=== PATIENT | female | born 1960 | race Caucasian/White ===

== ENCOUNTER 2017-05-16 11:22 | Inpatient (IN) | payer BC ==
[2017-05-16 13:10] LABS: ALT (SGPT) 18 U/L (8-55); AST (SGOT) 17 U/L (5-34); Albumin 4.3 g/dL (3.5-5.0); Alkaline Phosphatase 122 U/L (40-150); Anion Gap 12 mmol/L (10-20); BUN (Urea Nitrogen) 13 mg/dL (9.8-20.1); Bilirubin, Total 0.9 mg/dL (0.2-1.2); CK (CPK) 109 U/L (29-168); Calc. Creatinine Clearance 0 mL/min (70-130); Calcium 9.6 mg/dL (7.8-10.44); Carbon Dioxide 28 mmol/L (22-29); Chloride 104 mmol/L (98-107); Estimated GFR-MDRD 51; Globulin 3.2 g/dL (2.4-3.5); Glucose 98 mg/dL (70-105); Potassium 3.9 mmol/L (3.5-5.1); Protein, Total 7.5 g/dL (6.0-8.3); Sodium 140 mmol/L (136-145)
[2017-05-16 13:14] LABS: CKMB 1.3 ng/mL (0-6.6); Troponin I Less than 0.010 ng/mL (< 0.028)
[2017-05-16 13:39] LABS: #Basophils 0.1 thou/uL (0.0-0.2); #Eosinphils 0.1 thou/uL (0.0-0.7); #Monocytes 0.6 thou/uL (0.11-0.59); #Neutrophils 4.8 thou/uL (1.40-6.50); %Basophils 0.7 % (0.0-1.0); %Eosinophils 1.4 % (0.0-10.0); %Lymphocytes 41.9 % (21.0-51.0); %Monocytes 5.7 % (0.0-10.0); %Neutrophils 50.4 % (42.0-75.0); Mean Corpuscular HGB CONC 35.7 g/dL (32.0-36.0); Mean Corpuscular Hemoglobin 30.9 pg (27.0-31.0); Mean Corpuscular Volume 86.5 fl (81.0-99.0); Mean Platelet Volume 7.5 fL (7.4-10.4); Platelet Count 255 thou/uL (130-400); RBC Distribution Width 12.8 % (11.5-14.5); Red Blood Cell (RBC) Count 4.54 mill/uL (4.20-5.40); White Blood Cell (WBC) Count 9.6 thou/uL (4.8-10.8)
--- NOTE | 2017-05-16 13:51 | RAD ---
CHEST 1 VIEW: History Chest pain. COMPARISON: 03/08/16. FINDINGS: Cardiac silhouette is magnified by projection. Pulmonary vasculature is unremarkable. Mediastinum i s midline. There is no lobar consolidation or evidence of pneumothorax. quartz mounter leads overl ie the chest. IMPRESSION: No active cardiopulmonary abnormalities are demonstrated. POS: [facility]
[2017-05-16] MEDS ORDERED: Ondansetron HCl/PF 4 MG/2 ML Vial IVP PRN (15:12)
[2017-05-16] MEDS ORDERED: Ondansetron ODT 4 MG TAB PO PRN (15:12)
[2017-05-16] MEDS ORDERED: Acetaminophen 325 MG TAB PO PRN (15:12)
[2017-05-16] MEDS ORDERED: Nitroglycerin 0.4 MG TAB (25 Tab Bottle) PO PRN (15:12)
[2017-05-16 15:37] LABS: #Basophils 0.1 thou/uL (0.0-0.2); #Eosinphils 0.1 thou/uL (0.0-0.7); #Lymphocytes 3.6 thou/uL (1.20-3.40); #Monocytes 0.6 thou/uL (0.11-0.59); #Neutrophils 5.2 thou/uL (1.40-6.50); %Basophils 0.7 % (0.0-1.0); %Eosinophils 1.6 % (0.0-10.0); %Lymphocytes 37.4 % (21.0-51.0); %Monocytes 5.7 % (0.0-10.0); %Neutrophils 54.6 % (42.0-75.0); Hemoglobin 14.1 g/dL (12.0-16.0); Mean Corpuscular HGB CONC 35.2 g/dL (32.0-36.0); Mean Corpuscular Hemoglobin 30.6 pg (27.0-31.0); Mean Corpuscular Volume 86.7 fl (81.0-99.0); Mean Platelet Volume 7.2 fL (7.4-10.4); Platelet Count 251 thou/uL (130-400); RBC Distribution Width 12.8 % (11.5-14.5); Red Blood Cell (RBC) Count 4.62 mill/uL (4.20-5.40); White Blood Cell (WBC) Count 9.6 thou/uL (4.8-10.8)
[2017-05-16 16:02] LABS: Troponin I Less than 0.010 ng/mL (< 0.028)
[2017-05-16 16:33] VITALS: BMI 39.9
[2017-05-16] MEDS ORDERED: Clopidogrel Bisulfate 300 MG TAB PO SCH (17:15)
--- NOTE | 2017-05-16 17:52 | CON ---
DATE OF CONSULTATION: 05/16/2017 HISTORY OF PRESENT: The patient is a pleasant 56-year-old woman who presents with recurrent chest discomfort. The patient was seen initially in 2010. She was found to have severe coronary artery disease. She had 100% occlusion of the right coronary artery and mild disease in left anterior descending artery. The patient has been on medical therapy. She has had stable angina. Recently, she noted to have increasing frequency of her angina. She underwent a PET scan which revealed her to have evidence of mild anterior ischemia. The patient reported that her chest pain has been increasing in frequency. She presented to the emergency room with severe chest discomfort that resolved after 1 nitroglycerin tablet. This chest discomfort lasts for approximately 10- 15 minutes. The discomfort was left-sided and radiated up into her shoulder. It was associated with diaphoresis. Patient states she has been compliant with her medications. PAST MEDICAL HISTORY: 1. Coronary artery disease. 2. Hypertension. 3. Dyslipidemia. 4. Chronic renal insufficiency. 5. Diabetes mellitus. 6. Obesity. PAST SURGICAL HISTORY: Bladder surgery and C-spine surgery. SOCIAL HISTORY: Nonsmoker. MEDICATIONS: Amitriptyline 10 mg daily, gabapentin 300 mg at bedtime, Lipitor 40 at bedtime, Ziac 10/6.25 daily, Ranexa 500 mg p.o. b.i.d., Dexilant 20 mg at bedtime, lisinopril 10 daily, and Norvasc 5 daily. SOCIAL HISTORY: Nonsmoker. FAMILY HISTORY: Strong family history of heart disease. ALLERGIES: No known drug allergies. REVIEW OF SYSTEMS: Ten point system noticeable for anxiety, otherwise unremarkable. PHYSICAL EXAMINATION: GENERAL: Obese woman in no acute distress. VITAL SIGNS: Blood pressure 116/56. NECK: Showed no jugular venous distention. LUNGS: Clear to auscultation. HEART: Regular rate and rhythm, normal S1, S2 with no murmurs. ABDOMEN: Distended. EXTREMITIES: Showed trace edema. SKIN: Warm and dry. NEUROLOGIC: Nonfocal. VASCULAR: Radial pulses are 2+. LABORATORY RESULTS: Revealed her to have a sodium of 140, potassium 3.9, chloride 104, bicarbonate 28, BUN 30, creatinine 1.12, troponin less than 0.011. White blood cell count 9.6, hemoglobin 14.1, hematocrit 40.0 and her platelets are 251. Her EKG revealed her to have normal sinus rhythm with low voltage QRS. IMPRESSION: 1. Unstable angina. 2. History of severe coronary artery disease with totally occluded right coronary artery. 3. Hypertension. 4. Diabetes mellitus. 5. Dyslipidemia. 6. Obesity. This patient presents with chest discomfort suggestive of angina. We will add Imdur to her medical regimen. We will follow this patient with you through her hospitalization. We will add Plavix and probably recommend repeat catheterization. UMAIR
[2017-05-16] MEDS: Famotidine 20 MG TAB PO SCH (19:11)
[2017-05-16] MEDS: Atorvastatin Calcium 40 MG TAB PO SCH (19:24)
[2017-05-16 19:42] LABS: Troponin I Less than 0.010 ng/mL (< 0.028)
[2017-05-17 04:50] LABS: Band 5 % (5-11); Hemoglobin 13.6 g/dL (12.0-16.0); Lymphocytes 49 % (21-51); MDiff Complete? YES; Mean Corpuscular HGB CONC 34.9 g/dL (32.0-36.0); Mean Corpuscular Hemoglobin 30.4 pg (27.0-31.0); Mean Platelet Volume 7.5 fL (7.4-10.4); Monocytes 2 % (0-10); Neutrophil 44 % (42-75); Platelet Count 227 thou/uL (130-400); Red Blood Cell (RBC) Count 4.49 mill/uL (4.20-5.40); White Blood Cell (WBC) Count 8.4 thou/uL (4.8-10.8)
--- NOTE | 2017-05-17 07:11 | HP ---
CHIEF COMPLAINT: Chest pain. HISTORY OF PRESENT ILLNESS: This is a 56-year-old female patient, who presented here with chest pain that started after she took took a walk. Pain described as pressure and sharp with radiation to the left shoulder associated with some dizziness, shortness of breath, and a little bit of diaphoresis. Patient has never experienced this kind of pain before. The pain described as 10/10, relieved by ni tro. The patient does have a remote history of blocked coronary artery that was identified during pr evious cardiac catheterization. Recent PET scan according to the patient was somewhat inconclusive d ue to tissue attenuation. Patient is now being admitted for chest pain to rule out significant coron marco a artery disease. PAST MEDICAL HISTORY: Significant for coronary artery disease, hypertension, dyslipidemia, type 2 di abetes, and obesity. MEDICATIONS: Reviewed and as documented on babbel. ALLERGIES: No known drug allergies. FAMILY HISTORY: Significant for heart disease in both parents. SOCIAL HISTORY: Denies alcohol. The patient is . No tobacco, no illicit drug use. REVIEW OF SYSTEMS: As documented in the body of the history. PHYSICAL EXAMINATION: GENERAL: The patient was found not to be in any obvious distress noted with the following vital sign s. VITAL SIGNS: Afebrile with temperature 98.2, pulse 65, respiratory rate 16, O2 sat of 95%, blood pre ssure 116/56. HEENT: Unremarkable with moist oral mucosa. Neck is supple. No conjunctival injection or icterus. CARDIOVASCULAR SYSTEM: First and second heart sounds were heard. RESPIRATORY SYSTEM: Clear to auscultation. DIGESTIVE SYSTEM: Revealed a benign abdomen with positive bowel sounds. EXTREMITIES: No peripheral edema. SKIN: No new gross rash. LYMPHATICS: No peripheral lymphadenopathy. IMPRESSION: 1. Chest pain/unstable angina somewhat concerning for significant coronary artery disease. 2. Hypertension. 3. Dyslipidemia. 4. History of coronary artery disease. 5. Type 2 diabetes mellitus. PLAN: 1. The patient admitted to telemetry for observation. 2. Serial cardiac enzymes. 3. Cardiology consultation. 4. Nitroglycerin p.r.n. 5. Further management will be dependent on the clinical course as well as further recommendations fr Cardiology. CODE STATUS: FULL.
--- NOTE | 2017-05-17 07:36 | PDOC.PN ---
- Subjective Encounter Start Date: 05/17/17 Encounter Start Time: 07:34 Subjective: Seen and examined feeling better - Objective Resuscitation Status: Resuscitation Status FULL:Full Resuscitation Vital Signs & Weight: Vital Signs (12 hours) Temp Pulse Resp BP Pulse Ox 05/17/17 07:29 98.7 F 77 16 116/76 94 L 05/17/17 03:19 98.5 F 70 20 113/75 94 L 05/17/17 00:10 73 18 120/75 93 L 05/16/17 20:00 98.2 F 65 16 Weight Weight 247 lb I&O: 05/16/17 05/17/17 05/18/17 06:59 06:59 06:59 Intake Total 480 Output Total 900 Balance -420 Result Diagrams: 05/17/17 03:58 05/16/17 12:25 Phys Exam - Physical Examination Constitutional: NAD HEENT: PERRLA, moist MMs, sclera anicteric, TM's clear Neck: no nodes, no JVD, supple, full ROM Respiratory: no wheezing, no rales, no rhonchi, clear to auscultation bilateral Cardiovascular: RRR, no significant murmur, no rub Gastrointestinal: soft, non-tender, no distention, positive bowel sounds Musculoskeletal: no edema, pulses present Dx/Plan (1) Chest pain Code(s): R07.9 - CHEST PAIN, UNSPECIFIED Status: Acute (2) Unstable angina Status: Acute (3) CAD in [place] artery Code(s): I25.10 - ATHSCL HEART DISEASE OF [place] CORONARY ARTERY W/O ANG PCTRS Status: Acute (4) Hypertension Code(s): I10 - ESSENTIAL (PRIMARY) HYPERTENSION Status: Acute (5) Diabetes 1.5, managed as type 2 Code(s): E10.9 - TYPE 1 DIABETES MELLITUS WITHOUT COMPLICATIONS Status: Acute (6) Dyslipidemia Code(s): E78.5 - HYPERLIPIDEMIA, UNSPECIFIED Status: Acute - Plan DVT proph w/lovenox On aspirin and plavix -: Cardiology following -: Possible cardiac catherisation--deffer to cardiology * .
[2017-05-17] MEDS: Aspirin 325 MG TAB PO SCH (08:35)
[2017-05-17] MEDS: Bisoprolol Fumarate/HCTZ 10 mg/6.25 mg Tablet PO SCH (08:35)
[2017-05-17] MEDS: Lisinopril 10 MG TAB PO SCH (08:35)
[2017-05-17] MEDS: Clopidogrel Bisulfate 75 MG TAB PO SCH (08:35)
[2017-05-17] MEDS: Famotidine 20 MG TAB PO SCH ×2 (08:36→20:53)
[2017-05-17] MEDS: Enoxaparin Sodium 40 MG/0.4 ML SYRINGE SC SCH (08:37)
[2017-05-17] MEDS: Atorvastatin Calcium 40 MG TAB PO SCH (20:52)
[2017-05-17] MEDS: Amlodipine 5 MG TAB PO SCH (20:53)
[2017-05-17] MEDS ORDERED: Amlodipine 5 MG TAB PO SCH (21:00)
--- NOTE | 2017-05-18 08:18 | PDOC.PN ---
- Subjective Encounter Start Date: 05/18/17 Encounter Start Time: 08:17 Subjective: Seen and examined feeling ok - Objective Resuscitation Status: Resuscitation Status FULL:Full Resuscitation Vital Signs & Weight: Vital Signs (12 hours) Temp Pulse Resp BP Pulse Ox 05/18/17 07:55 98.2 F 65 14 05/18/17 07:52 98.2 F 65 14 107/65 94 L 05/18/17 04:02 98.4 F 65 16 97/55 L 94 L Weight Weight 247 lb I&O: 05/17/17 05/18/17 05/19/17 06:59 06:59 06:59 Intake Total 480 200 Output Total 900 1350 Balance -420 -1150 Result Diagrams: 05/17/17 03:58 05/16/17 12:25 Phys Exam - Physical Examination Constitutional: NAD HEENT: PERRLA, moist MMs, sclera anicteric, TM's clear, oral pharynx no lesions Neck: no nodes, no JVD, supple, full ROM Respiratory: no wheezing, no rales, no rhonchi, clear to auscultation bilateral Cardiovascular: RRR, no significant murmur, no rub Gastrointestinal: soft, non-tender, no distention, positive bowel sounds Musculoskeletal: no edema, pulses present Dx/Plan (1) Chest pain Code(s): R07.9 - CHEST PAIN, UNSPECIFIED Status: Acute (2) Unstable angina Status: Acute (3) CAD in [place] artery Code(s): I25.10 - ATHSCL HEART DISEASE OF [place] CORONARY ARTERY W/O ANG PCTRS Status: Acute (4) Hypertension Code(s): I10 - ESSENTIAL (PRIMARY) HYPERTENSION Status: Acute (5) Diabetes 1.5, managed as type 2 Code(s): E10.9 - TYPE 1 DIABETES MELLITUS WITHOUT COMPLICATIONS Status: Acute (6) Dyslipidemia Code(s): E78.5 - HYPERLIPIDEMIA, UNSPECIFIED Status: Acute - Plan plan discussed w/ family Cardiac catherisation tommorrow -: Change status to in patient * .
[2017-05-18] MEDS: Enoxaparin Sodium 40 MG/0.4 ML SYRINGE SC SCH (08:41)
[2017-05-18] MEDS: Bisoprolol Fumarate/HCTZ 10 mg/6.25 mg Tablet PO SCH (08:41)
[2017-05-18] MEDS: Clopidogrel Bisulfate 75 MG TAB PO SCH (08:41)
[2017-05-18] MEDS: Aspirin 325 MG TAB PO SCH (08:41)
[2017-05-18] MEDS: Famotidine 20 MG TAB PO SCH ×2 (08:41→20:30)
[2017-05-18] MEDS: Lisinopril 10 MG TAB PO SCH (08:41)
[2017-05-18] MEDS ORDERED: Communication Order-Pharmacy FS SCH (14:45)
[2017-05-18] MEDS: Amlodipine 5 MG TAB PO SCH (20:30)
[2017-05-18] MEDS: Atorvastatin Calcium 40 MG TAB PO SCH (20:32)
[2017-05-19] MEDS ORDERED: Diazepam 5 MG TAB PO SCH (06:00)
[2017-05-19] MEDS: Famotidine 20 MG TAB PO SCH (06:18)
[2017-05-19] MEDS: Clopidogrel Bisulfate 75 MG TAB PO SCH (06:19)
[2017-05-19] MEDS: Aspirin 325 MG TAB PO SCH (06:19)
[2017-05-19] MEDS: Lisinopril 10 MG TAB PO SCH (06:19)
[2017-05-19] MEDS ORDERED: Bisoprolol Fumarate/HCTZ 10 mg/6.25 mg Tablet PO SCH ×2 (06:30→07:00)
[2017-05-19 08:32] VITALS: BP 103/61; TEMP 98.3
[2017-05-19] MEDS ORDERED: Lidocaine 1% (PF) 30 ML VIAL ONE (09:17)
[2017-05-19] MEDS ORDERED: Midazolam HCl 2 mg/2 ml Vial ONE (09:44)
[2017-05-19] MEDS ORDERED: Fentanyl 100 MCG/2 ML VIAL ONE (09:44)
[2017-05-19] MEDS ORDERED: Acetaminophen/Codeine 30-300mg Tablet PO PRN ×2 (10:18)
[2017-05-19] MEDS ORDERED: Nitroglycerin 0.4 MG TAB (25 Tab Bottle) SL PRN (10:18)
[2017-05-19] MEDS ORDERED: traMADol HCl 50 MG TAB PO PRN (10:18)
[2017-05-19] MEDS ORDERED: Sodium Chloride 0.9% 200 ML IV PRN (10:30)
[2017-05-19] MEDS ORDERED: Bivalirudin 250 MG VIAL ONE (10:40)
[2017-05-19] MEDS ORDERED: Iopamidol 370 76% 50 ML VIAL FS ONE (12:51)
[2017-05-19] MEDS ORDERED: Iopamidol 370 76% 100 ML VIAL ONE (12:51)
--- NOTE | 2017-05-19 15:33 | EKG ---
Test Reason : POST CATH Blood Pressure : / mmHG Vent. Rate : 059 BPM Atrial Rate : 059 BPM P-R Int : 216 ms QRS Dur : 082 ms QT Int : 462 ms P-R-T Axes : 061 048 071 degrees QTc Int : 457 ms Sinus bradycardia with 1st degree A-V block Otherwise normal ECG Confirmed by JUAREZ PEREZ ([id number]) on 05/19/2017 3:33:00 PM Referred By: DESIREE Confirmed By:JUAREZ PEREZ
--- NOTE | 2017-05-19 18:12 | DIS ---
[facility] call admission for [facility]. [facility]. FINAL DIAGNOSES: Severe three-vessel coronary artery disease, chest pain, diabetes mellitus type 2, dyslipidemia, hypertension. DISCHARGE MEDICATIONS: Imdur 30 mg a day, Lipitor 80 mg a day, Trulicity 1.5 mg subcutaneous every 7 days, telmisartan 80 mg a day, metformin 1000 mg twice a day, aspirin 81 mg a day, terbinafine 250 m g a day, Lunesta 2 mg at bedtime, Ranexa 1000 mg twice a day, amlodipine 5 mg a day, clonidine 0.1 mg t.i.d. p.r.n., bisoprolol-hydrochlorothiazide 10/6.25 daily, Xanax 0.25 mg a day, nitroglycerin 0.4 mg every 5 minutes sublingual p.r.n. for chest pain 3 times max. ALLERGIES: None. PENDING AT THE TIME OF DISCHARGE: Nothing. CODE STATUS: FULL. DIET: Diabetic. HOSPITAL COURSE: [facility] to sharp chest pain radiating to left shoulder with shortness of breath. Initial electrocardiogram, sinus bradycardia, f irst degree block, otherwise normal. LABORATORY DATA: CBC was normal. Comp metabolic profile was normal except for creatinine 1.12. She was seen in consultation by Dr. Jonathan Davis. The patient was taken to the cardiac catheterization lab on 05/19/17, 70% right coronary artery lesion, 70% LAD, circumflex none. Normal left ventricula r function. Plavix was added to her regimen as was Imdur 30 mg a day, add Plavix to the medicine lis t previously mentioned. At the time of discharge, her vital signs are stable. She is doing well. S he had a cardiac catheterization. She is on bed rest for appropriate number of hours, and will be di scharged. This has been discussed with her. CONSULTATIONS: Dr. Jonathan Davis, Cardiology. PROCEDURES: Cardiac catheterization. FOLLOW-UP: PCP in 7 days, Dr. Davis in 2 weeks. Prescriptions have been written.
[2017-05-20] MEDS ORDERED: Bisoprolol Fumarate/HCTZ 10 mg/6.25 mg Tablet PO SCH (09:00)
--- NOTE | 2017-06-05 15:12 | EKG ---
Test Reason : CP Blood Pressure : / mmHG Vent. Rate : 070 BPM Atrial Rate : 070 BPM P-R Int : 204 ms QRS Dur : 076 ms QT Int : 424 ms P-R-T Axes : 049 011 068 degrees QTc Int : 457 ms Normal sinus rhythm Low voltage QRS Borderline ECG Confirmed by BROOKE HOWE ([id number]), fan mail editor ROSA M NAVA ([id number]) on 06/05/2017 3:12:06 PM Referred By: Confirmed By:BROOKE HOWE
== END 2017-05-19 20:25 | disposition home or self-care (01) | DRG 287 ==
LOC: ERS 11:22 → OBSVTOIN 14:44 → 2SW 14:44 → 2NO 05-18 10:49
PROVIDERS: ADMIT Internal Medicine Nephrology; ATTEND Internal Medicine Nephrology
PROC: 3E0234Z Introduction of Serum, Toxoid and Vaccine into Muscle, Percutaneous Approach (ICD-10-PCS; 2017-05-16)
PROC: 4A023N7 Measurement of Cardiac Sampling and Pressure, Left Heart, Percutaneous Approach (ICD-10-PCS; principal; 2017-05-19)
PROC: B2111ZZ Fluoroscopy of Multiple Coronary Arteries using Low Osmolar Contrast (ICD-10-PCS; 2017-05-19)
PROC: B2151ZZ Fluoroscopy of Left Heart using Low Osmolar Contrast (ICD-10-PCS; 2017-05-19)
DX: I25.110 Atherosclerotic heart disease of native coronary artery with unstable angina pectoris (principal); I25.82 Chronic total occlusion of coronary artery; E11.9 Type 2 diabetes mellitus without complications; E78.5 Hyperlipidemia, unspecified; I10 Essential (primary) hypertension; Z79.4 Long term (current) use of insulin; Z79.84 Long term (current) use of oral hypoglycemic drugs; Z23 Encounter for immunization
CPT/HCPCS: 36415; 36416; 71045; 80053; 82553; 84484; 85007; 85025; 85027; 85347; 90471; 90732; 93005; 93458; 93571; 99152; 99153; C1769; C1887; G0009; J0153; J0583; J1644; J1650; J2001; J2250; J3010

== ENCOUNTER 2018-12-24 09:28 | Observation (INO) | payer BC ==
[2018-12-24 10:15] LABS: #Basophils 0.1 thou/uL (0.0-0.2); #Eosinphils 0.1 thou/uL (0.0-0.7); #Lymphocytes 3.2 thou/uL (1.20-3.40); #Monocytes 0.4 thou/uL (0.11-0.59); #Neutrophils 4.2 thou/uL (1.40-6.50); %Basophils 0.8 % (0.0-1.0); %Eosinophils 1.4 % (0.0-10.0); %Lymphocytes 40.2 % (21.0-51.0); %Neutrophils 52.6 % (42.0-75.0); Hemoglobin 14.7 g/dL (12.0-16.0); Mean Corpuscular HGB CONC 36.3 g/dL (32.0-36.0); Mean Corpuscular Hemoglobin 30.6 pg (27.0-31.0); Mean Corpuscular Volume 84.1 fL (78.0-98.0); Mean Platelet Volume 7.7 fL (7.4-10.4); Platelet Count 240 thou/uL (130-400); RBC Distribution Width 13.5 % (11.5-14.5)
[2018-12-24 10:33] LABS: ALT (SGPT) 28 U/L (8-55); AST (SGOT) 18 U/L (5-34); Albumin 4.2 g/dL (3.5-5.0); Alkaline Phosphatase 130 U/L (40-110); Anion Gap 10 mmol/L (10-20); BUN (Urea Nitrogen) 12 mg/dL (9.8-20.1); Bilirubin, Total 0.9 mg/dL (0.2-1.2); CK (CPK) 111 U/L (29-168); Calc. Creatinine Clearance 0 mL/min (70-130); Calcium 9.7 mg/dL (7.8-10.44); Carbon Dioxide 30 mmol/L (22-29); Chloride 104 mmol/L (98-107); Estimated GFR-MDRD 44; Globulin 2.6 g/dL (2.4-3.5); Glucose 201 mg/dL (70-105); Potassium 3.5 mmol/L (3.5-5.1); Protein, Total 6.8 g/dL (6.0-8.3); Sodium 140 mmol/L (136-145)
[2018-12-24] MEDS ORDERED: Aspirin Chewable 81 MG TAB ONE (10:46)
[2018-12-24] MEDS ORDERED: Nitroglycerin 0.4 MG TAB 1 EACH ONE (10:46)
--- NOTE | 2018-12-24 10:56 | RAD ---
CHEST 1 VIEW: Date: 12/24/18 HISTORY: Chest pain that started this morning. COMPARISON: 05/16/17 study. FINDINGS: Heart size and mediastinum are within normal limits. Lungs are clear of infiltrates. No bony findings . IMPRESSION: No active intrathoracic disease. POS: [facility]
[2018-12-24] MEDS ORDERED: Nitroglycerin 2% Ointment 1 INCH/1 GM Packet ONE (10:58)
[2018-12-24] MEDS ORDERED: Nitroglycerin 0.4 MG TAB (25 Tab Bottle) PO PRN (11:31)
[2018-12-24] MEDS ORDERED: Dextrose 5% in Water 1,000 ML IV PRN (11:33)
[2018-12-24] MEDS ORDERED: HumaLOG 300 UNITS/3 ML VIAL SC PRN (11:33)
[2018-12-24] MEDS ORDERED: Dextrose 50% Abboject 50 ML SYRINGE SLOW IVP PRN (11:33)
--- NOTE | 2018-12-24 12:26 | HP ---
PRIMARY CARE PROVIDER: Dr. Ciaran Weathers. CHIEF COMPLAINT: Chest pain. HISTORY OF PRESENT ILLNESS: Ms. Torres is a pleasant 58-year-old lady, who was seen at [facility] on December 24, 2018. She has a known history of coronary artery disease and sees Dr. Davis. In May 2017, she underwent cardiac catheterization. She was found to have 2-vessel coronary artery disease, in LAD and RCA. She had good ventricular function. She was seen by Cardiology Service as an outpatient 3 weeks ago, at which time she had 2D echocardiogram. She was told that there was slight stiffening of her heart muscle. Since then, she has been feeling on and off chest discomfort. She describes it as sharp, left-sided, occasionally accompanied by pain in the neck, accompanied by shortness of breath. No cough, fevers, or chills. She reports using nitro spray with relief of the discomfort. She cannot recall any aggravating factors. Today morning, she was woken up from sleep with similar pain. It usually lasts a few minutes, but this time it lasted more than an hour. She therefore presented to the emergency room. She reports that it improved after she got nitrates. REVIEW OF SYSTEMS: All systems were reviewed and found to be negative except for the pertinent positives mentioned above. PAST MEDICAL HISTORY: Coronary artery disease; hypertension; dyslipidemia; diabetes mellitus, type 2; obesity; and chronic kidney disease, stage 3. PAST SURGICAL HISTORY: section and bladder sling surgery. PSYCHIATRIC HISTORY: Anxiety. SOCIAL HISTORY: No history of tobacco use, alcohol use, or recreational drug use. FAMILY HISTORY: Significant for stroke in her mother. ALLERGIES: NO KNOWN DRUG ALLERGIES. CURRENT MEDICATIONS: 1. Gabapentin 300 mg daily. 2. Atorvastatin 40 mg daily. 3. Bisoprolol/hydrochlorothiazide 10/6.25 mg daily. 4. Ranexa 1000 mg daily. 5. Lisinopril 10 mg daily. 6. Clonidine 0.1 mg every 8 hours as needed. 7. Alprazolam 0.25 mg as needed. 8. Lasix 20 mg daily. 9. Plavix 75 mg daily. 10. Nitroglycerin p.r.n. 11. Amlodipine, dose to be clarified. 12. Tramadol 50 mg as needed. 13. Metformin 500 mg 2 times a day. 14. Eszopiclone as needed. 15. Trulicity subcutaneously, dose unknown. PHYSICAL EXAMINATION: GENERAL: On examination, Ms. Torres is awake and alert, not in acute distress. She is obese. VITAL SIGNS: Blood pressure is 149/84, pulse 71, respiratory rate 14, and oxygen saturation 100% on room air. She is afebrile. HEENT: Eyes; no scleral icterus, no conjunctival pallor. ENT, moist mucosal membranes. No oropharyngeal erythema or exudates. NECK: Supple, nontender, trachea is midline. RESPIRATORY: Accessory muscles of breathing are not active. Chest wall movements are symmetric bilaterally. Lungs are clear to auscultation without wheeze, rhonchi, or crepitations. CARDIOVASCULAR: S1 and S2 are heard, regular. Peripheral pulses palpable. ABDOMEN: Soft, nontender, bowel sounds heard. NEUROLOGIC: Cranial nerves 2 through 12 are intact. MUSCULOSKELETAL: Power is 5/5 in all 4 extremities. SKIN: No rashes or subcutaneous nodules. LYMPHATIC: No cervical lymphadenopathy. PSYCHIATRIC: Normal mood, normal affect. The patient is oriented to person, place, and time. DIAGNOSTIC STUDIES: Ms. Torres' labs and investigations were reviewed. I reviewed her electrocardiogram, which shows normal sinus rhythm. No ST changes to suggest an acute coronary syndrome. I also reviewed her chest x-ray, which does not show any pulmonary infiltrates. She has an unremarkable CBC, normal sodium, normal potassium. Elevated creatinine of 1.25, last known creatinine 1.18 on December 03, 2018. Elevated alkaline phosphatase of 130 and an otherwise unremarkable liver function test. ASSESSMENT AND PLAN: Ms. Torres is a pleasant 58-year-old lady, who was seen at [facility] on December 24, 2018. Her problem list includes: 1. Chest pain: Ms. Torres is presenting with chest pain in the context of having known coronary artery disease. She attributes at least part of the sensation to anxiety. She will be admitted to the hospital for further management. I should note that her first troponin I is negative, EKG is unremarkable. We will recheck her troponin level. We will consult Cardiology Service for opinion and help with management. We will give nitrates as needed. We will resume home medications including Plavix and aspirin. 2. Diabetes mellitus, type 2: We will resume home medications and start her on Accu-Cheks and insulin sliding scale. 3. Chronic kidney disease, stage 3: This is stable. 4. Dyslipidemia: Continue atorvastatin. 5. Hypertension: Resume home medications. Monitor vital signs and titrate antihypertensives as needed. 6. Elevated alkaline phosphatase: Alkaline phosphatase is mildly elevated. To be followed up as an outpatient. I should note that on December 03, she had slightly higher alkaline phosphatase at 136, but at that time it was within the normal reference range, normal was 40 to 150 units/L at that time; today, the reference appears to have been changed to 40 to 110 units/L. Many thanks for allowing me to participate in your patient's care. Please feel free to contact me with any questions or concerns. LEVEL OF RISK: High. LEVEL OF COMPLEXITY: High. Job ID: [id number]
[2018-12-24 13:34] VITALS: BMI 41.3
[2018-12-24 14:20] LABS: Troponin I Less than 0.010 ng/mL (< 0.028)
[2018-12-24 17:04] LABS: Troponin I Less than 0.010 ng/mL (< 0.028)
[2018-12-24] MEDS ORDERED: ALPRAZolam 0.25 MG TAB PO PRN (20:04)
[2018-12-24] MEDS ORDERED: cloNIDine 0.1 MG TAB PO PRN (20:04)
[2018-12-24] MEDS ORDERED: traMADol HCl 50 MG TAB PO PRN (20:04)
[2018-12-24] MEDS ORDERED: Temazepam 15 MG CAP PO PRN (20:05)
[2018-12-24] MEDS ORDERED: Calcium Carbonate 500 MG ChewTAB PO PRN (20:36)
[2018-12-24] MEDS ORDERED: Atorvastatin Calcium 40 MG TAB PO SCH (21:00)
--- NOTE | 2018-12-25 03:23 | CON ---
DATE OF CONSULTATION: REASON FOR CONSULTATION: Chest pressure. PRIMARY GEAR SHAPER: Jonathan Davis MD HISTORY OF PRESENT ILLNESS: Ms. Torres is a very pleasant 58-year-old woman. The patient has a previous history of coronary artery disease. She was evaluated in 2018. She had known chronically occluded right coronary artery, but in the PET scan looked like there was likely anterior ischemia. Therefore, she underwent cardiac catheterization. She was found to have a chronically occluded right coronary artery, but no flow-limiting disease in the circumflex or LAD. FFR was also done. There was no flow-limiting disease. The patient states she has been having increasing chest pain recently, having to take about 2 nitroglycerin a day. She had an echocardiogram in the office recently and she is concerned about that report. She thinks that it showed that her disease has worsened. She said she is very worried about that. As mentioned, she is having to take nitroglycerin for resting chest pain at least twice a day. MEDICATIONS: 1. Xanax. 2. Clonidine. 3. Amlodipine. 4. Ranexa. 5. Aspirin. 6. Telmisartan. 7. Atorvastatin. 8. Clopidogrel. 9. Furosemide. 10. Vascepa. 11. Praluent. REVIEW OF SYSTEMS: 10 point review of systems reveals no further difficulties. ALLERGIES: NONE. SOCIAL HISTORY: No alcohol or tobacco. PHYSICAL EXAMINATION: GENERAL: This is a pleasant patient. VITAL SIGNS: She is 5 feet 6 inches tall, 256 pounds, BMI is 41.3. Blood pressure 131/72 and pulse 76. NECK: Neck veins are normal. Carotid normal upstrokes. No bruits. LUNGS: Clear anteriorly and posteriorly. CARDIAC: Normal S1, normal S2. There is no murmur, rub, or gallop. ABDOMEN: Obese, nontender. No hepatosplenomegaly. EXTREMITIES: Warm and dry. No clubbing or cyanosis. There is no edema. LABORATORY DATA: Cardiac enzymes were negative. EKG shows no acute changes. ASSESSMENT: 1. Recurrent anginal chest pain. 2. Single-vessel coronary artery disease based on catheterization in 2018. 3. Obesity. 4. Hyperlipidemia, being treated. The patient is on good medical regimen. Continues to have chest pain. Dr. Davis to see the patient tomorrow to see if anything further should be done. Keep her n.p.o. until he sees her. Job ID: [id number]
[2018-12-25 04:52] LABS: Cardiac Risk 4.2 (Less than 4.5)
[2018-12-25 07:52] VITALS: BP 124/72; TEMP 98
[2018-12-25] MEDS ORDERED: Aspirin 325 mg Enteric Coated Tablet PO SCH (09:00)
--- NOTE | 2018-12-26 05:24 | DIS ---
DATE OF ADMISSION: 12/24/2018 DATE OF DISCHARGE: 12/25/2018 PRIMARY CARE PROVIDER: Ciaran Weathers MD DISCHARGE DIAGNOSES: 1. Chest pain. 2. Probable cardiac etiology for chest pain. CONDITION OF PATIENT ON THE DAY OF DISCHARGE: Stable. I assessed Ms. Torres on the day of discharge. She denies any chest pain or shortness of breath. Vital signs are stable. S1 and S2 are heard, regular. Lungs are clear to auscultation bilaterally. CONSULTATIONS DURING THIS HOSPITALIZATION: Cardiology, Dr. Smalls. The patient was also seen by Dr. Davis. DISCHARGE MEDICATIONS: No change was made to her pre-admission home medications as dictated in my history and physical note dated December 24, 2018. Please note that her Ranexa dose is 1000 mg 2 times a day and not daily as dictated in my history and physical note. FOLLOWUP APPOINTMENTS: With primary care provider in 1 weeks' time and with Dr. Davis in 2 to 3 weeks. HOSPITAL COURSE: Ms. Torres is a pleasant 58-year-old lady, who was admitted to [facility] on November 2018 for chest pain. Please refer to my history and physical note dated December 24, 2018 for further details. She was monitored on telemetry. Her symptoms resolved. She was seen by Cardiology Service. She had a mildly elevated alkaline phosphatase level during this hospitalization. She has been advised to follow up with her primary care provider for further workup if needed. She has been cleared for discharge by Cardiology Service. No change was made to her pre-admission home medications. Many thanks for allowing me to participate in your patient's care. Please feel free to contact me with any questions or concerns. DISCHARGE DESTINATION: Home. Job ID: [id number]
== END 2018-12-25 11:38 | disposition home or self-care (01) ==
LOC: ERS 09:28 → 2SW 11:13
PROVIDERS: ADMIT Internal Medicine; ATTEND Internal Medicine
DX: I25.119 Atherosclerotic heart disease of native coronary artery with unspecified angina pectoris (principal); I12.9 Hypertensive chronic kidney disease with stage 1 through stage 4 chronic kidney disease, or unspecified chronic kidney disease; E11.22 Type 2 diabetes mellitus with diabetic chronic kidney disease; N18.3 Chronic kidney disease, stage 3 (moderate); E78.5 Hyperlipidemia, unspecified; F41.9 Anxiety disorder, unspecified; E66.9 Obesity, unspecified; Z68.41 Body mass index [BMI] 40.0-44.9, adult; Z79.84 Long term (current) use of oral hypoglycemic drugs; Z79.899 Other long term (current) drug therapy
CPT/HCPCS: 36415; 36416; 71045; 80053; 80061; 82550; 84484; 85025; 93005; 94760; G0378

== ENCOUNTER 2020-09-07 17:02 | Inpatient (IN) | payer BC ==
[~2020-09-07 17:02] MED LIST: Iopamidol-370 76% 500 ML 1 ML ONE
[2020-09-07 17:43] LABS: #Lymphocytes 3.4 thou/uL (1.20-3.40); #Neutrophils 12.6 thou/uL (1.40-6.50); %Basophils 0.2 % (0.0-1.0); %Eosinophils 0.1 % (0.0-10.0); %Lymphocytes 19.8 % (21.0-51.0); %Monocytes 5.8 % (0.0-10.0); %Neutrophils 74.1 % (42.0-75.0); Hemoglobin 15.1 g/dL (12.0-16.0); Mean Corpuscular HGB CONC 34.6 g/dL (32.0-36.0); Mean Corpuscular Hemoglobin 29.2 pg (27.0-31.0); Mean Corpuscular Volume 84.4 fL (78.0-98.0); Mean Platelet Volume 7.7 fL (7.4-10.4); Platelet Count 263 thou/uL (130-400); RBC Distribution Width 13.5 % (11.5-14.5); Red Blood Cell (RBC) Count 5.16 mill/uL (4.20-5.40)
[2020-09-07 18:04] LABS: Bilirubin Negative (Negative); Blood, Urine Trace (Negative); Glucose, Urine (Dipstick) Negative (Negative); Ketone, Urine Negative (Negative); Leukocyte Trace (Negative); Nitrite Negative (Negative); Protein, Urine (Dipstick) Trace mg/dL (Neg-Trace); Urobilinogen 0.2 mg/dL (Less than 2)
[2020-09-07 18:07] LABS: Clarity Hazy (Clear)
[2020-09-07 18:09] LABS: RBC/HPF 0-3 HPF (0-3)
[2020-09-07 18:10] LABS: ALT (SGPT) 18 U/L (8-55); AST (SGOT) 11 U/L (5-34); Albumin 3.8 g/dL (3.5-5.0); Alkaline Phosphatase 102 U/L (40-110); Anion Gap 11 mmol/L (10-20); BUN (Urea Nitrogen) 13 mg/dL (9.8-20.1); Bilirubin, Total 0.9 mg/dL (0.2-1.2); Calc. Creatinine Clearance 0 mL/min (70-130); Calcium 9.6 mg/dL (7.8-10.44); Carbon Dioxide 26 mmol/L (22-29); Chloride 103 mmol/L (98-107); Globulin 2.9 g/dL (2.4-3.5); Glucose 182 mg/dL (70-105); Lipase 16 U/L (8-78); Potassium 3.4 mmol/L (3.5-5.1); Protein, Total 6.7 g/dL (6.0-8.3); Sodium 137 mmol/L (136-145)
[2020-09-07 18:10] LABS: Bacteria/HPF Rare-Few HPF (None Seen)
[2020-09-07] MEDS ORDERED: Morphine 4 MG/ML VIAL ONE (18:26)
[2020-09-07] MEDS ORDERED: Piperacillin/Tazobactam 3.375 GM VIAL ONE (19:33)
[2020-09-07] MEDS ORDERED: Dextrose 5% in Water 1,000 ML IV PRN (19:34)
[2020-09-07] MEDS ORDERED: Dextrose 50% Abboject 50 ML SYRINGE SLOW IVP PRN (19:34)
[2020-09-07] MEDS ORDERED: HumaLOG 300 UNITS/3 ML VIAL SC PRN (19:34)
[2020-09-07] MEDS ORDERED: Zolpidem Tartrate 5 MG TAB PO PRN (19:34)
[2020-09-07] MEDS ORDERED: hydrALAZINE 20 MG/ML VIAL SLOW IVP PRN (19:38)
[2020-09-07] MEDS ORDERED: Labetalol HCl 100 MG/20 ML VIAL SLOW IVP PRN (19:38)
[2020-09-07] MEDS ORDERED: ALPRAZolam 0.25 MG TAB PO PRN (19:39)
[2020-09-07] MEDS: Lactated Ringer's 1,000 ML IV SCH (22:47)
[2020-09-07] MEDS: HYDROcodone/Acetaminophen 7.5/325 mg Tablet PO PRN (22:52)
[2020-09-07] MEDS: Atorvastatin Calcium 40 MG TAB PO SCH (22:52)
[2020-09-07] MEDS: Famotidine 20 MG TAB PO SCH (22:52)
[2020-09-07 23:10] VITALS: BMI 38.9
[2020-09-08] MEDS: metroNIDAZOLE 500 MG in Premix Bag 1 BAG IVPB SCH ×4 (00:10→21:30)
[2020-09-08 05:34] LABS: Band 3 % (5-11); Hemoglobin 13.1 g/dL (12.0-16.0); Lymphocytes 23 % (21-51); MDiff Complete? YES; Mean Corpuscular Hemoglobin 28.3 pg (27.0-31.0); Mean Corpuscular Volume 85.7 fL (78.0-98.0); Mean Platelet Volume 7.9 fL (7.4-10.4); Monocytes 2 % (0-10); Neutrophil 72 % (42-75); Platelet Count 223 thou/uL (130-400); Platelet Morphology Comment Appears Adequate; RBC Distribution Width 13.6 % (11.5-14.5); RBC Morphology Normal; Red Blood Cell (RBC) Count 4.63 mill/uL (4.20-5.40); White Blood Cell (WBC) Count 14.2 thou/uL (4.8-10.8)
[2020-09-08 05:49] LABS: ALT (SGPT) 17 U/L (8-55); AST (SGOT) 13 U/L (5-34); Albumin 3.3 g/dL (3.5-5.0); Alkaline Phosphatase 88 U/L (40-110); Anion Gap 11 mmol/L (10-20); BUN (Urea Nitrogen) 11 mg/dL (9.8-20.1); Bilirubin, Total 1.2 mg/dL (0.2-1.2); Calc. Creatinine Clearance 113 mL/min (70-130); Calcium 8.9 mg/dL (7.8-10.44); Carbon Dioxide 29 mmol/L (22-29); Chloride 106 mmol/L (98-107); Globulin 2.7 g/dL (2.4-3.5); Glucose 155 mg/dL (70-105); Potassium 3.6 mmol/L (3.5-5.1); Sodium 142 mmol/L (136-145)
[2020-09-08] MEDS: Acetaminophen 325 MG TAB PO PRN (06:30)
[2020-09-08] MEDS ORDERED: Amlodipine 5 MG TAB PO SCH (09:00)
[2020-09-08] MEDS ORDERED: Enoxaparin Sodium 30 MG/0.3 ML SYRINGE SC SCH (09:00)
[2020-09-08] MEDS: Aspirin Chewable 81 MG TAB PO SCH ×2 (09:20→12:04)
[2020-09-08] MEDS: Famotidine 20 MG TAB PO SCH ×2 (09:21→19:47)
[2020-09-08] MEDS: Clopidogrel Bisulfate 75 MG TAB PO SCH ×2 (09:21→12:05)
[2020-09-08] MEDS: Lactated Ringer's 1,000 ML IV SCH (09:25)
[2020-09-08] MEDS: HYDROcodone/Acetaminophen 7.5/325 mg Tablet PO PRN ×3 (09:29→21:27)
[2020-09-08 11:14] LABS: SARS-CoV-2 PCR by NAA Not Detected (NotDetected)
[2020-09-08] MEDS: Pantoprazole 40 MG VIAL IVP SCH ×2 (12:46→19:43)
[2020-09-08] MEDS: Atorvastatin Calcium 40 MG TAB PO SCH (19:47)
[2020-09-09] MEDS: Ondansetron PF 4 MG/2 ML Vial IVP PRN ×3 (00:18→16:23)
[2020-09-09] MEDS: HYDROcodone/Acetaminophen 7.5/325 mg Tablet PO PRN ×3 (04:36→13:29)
[2020-09-09] MEDS: metroNIDAZOLE 500 MG in Premix Bag 1 BAG IVPB SCH ×3 (05:50→21:31)
[2020-09-09] MEDS: Lactated Ringer's 1,000 ML IV SCH ×2 (06:12→08:42)
[2020-09-09] MEDS: Clopidogrel Bisulfate 75 MG TAB PO SCH (08:41)
[2020-09-09] MEDS: Aspirin Chewable 81 MG TAB PO SCH (08:41)
[2020-09-09] MEDS: Famotidine 20 MG TAB PO SCH ×2 (08:41→19:55)
[2020-09-09] MEDS: Pantoprazole 40 MG VIAL IVP SCH ×2 (08:42→19:56)
[2020-09-09] MEDS: Atorvastatin Calcium 40 MG TAB PO SCH (19:55)
[2020-09-09] MEDS: Acetaminophen 325 MG TAB PO PRN (21:31)
[2020-09-10] MEDS: Lactated Ringer's 1,000 ML IV SCH ×3 (03:30→18:40)
[2020-09-10] MEDS: HYDROcodone/Acetaminophen 7.5/325 mg Tablet PO PRN ×2 (03:59→14:50)
[2020-09-10] MEDS: Ondansetron PF 4 MG/2 ML Vial IVP PRN (04:00)
[2020-09-10 05:11] LABS: #Basophils 0.1 thou/uL (0.0-0.2); #Eosinphils 0.2 thou/uL (0.0-0.7); #Lymphocytes 3.5 thou/uL (1.20-3.40); #Monocytes 0.5 thou/uL (0.11-0.59); #Neutrophils 6.4 thou/uL (1.40-6.50); %Basophils 0.5 % (0.0-1.0); %Lymphocytes 32.7 % (21.0-51.0); %Monocytes 5.1 % (0.0-10.0); %Neutrophils 59.8 % (42.0-75.0); Mean Corpuscular HGB CONC 33.4 g/dL (32.0-36.0); Mean Corpuscular Hemoglobin 28.8 pg (27.0-31.0); Mean Corpuscular Volume 86.3 fL (78.0-98.0); Mean Platelet Volume 7.9 fL (7.4-10.4); Platelet Count 236 thou/uL (130-400); RBC Distribution Width 13.3 % (11.5-14.5); Red Blood Cell (RBC) Count 4.52 mill/uL (4.20-5.40); White Blood Cell (WBC) Count 10.6 thou/uL (4.8-10.8)
[2020-09-10] MEDS: metroNIDAZOLE 500 MG in Premix Bag 1 BAG IVPB SCH ×3 (07:01→22:21)
[2020-09-10] MEDS: Pantoprazole 40 MG VIAL IVP SCH ×2 (08:32→20:13)
[2020-09-10] MEDS: Aspirin Chewable 81 MG TAB PO SCH (08:32)
[2020-09-10] MEDS: Clopidogrel Bisulfate 75 MG TAB PO SCH (08:32)
[2020-09-10] MEDS: Famotidine 20 MG TAB PO SCH ×2 (08:32→20:13)
[2020-09-10] MEDS: Acetaminophen 325 MG TAB PO PRN ×2 (08:38→18:39)
[2020-09-10] MEDS: Atorvastatin Calcium 40 MG TAB PO SCH (20:12)
[2020-09-10 23:17] LABS: Anion Gap 12 mmol/L (10-20); BUN (Urea Nitrogen) 6 mg/dL (9.8-20.1); Calc. Creatinine Clearance 99 mL/min (70-130); Calcium 8.7 mg/dL (7.8-10.44); Carbon Dioxide 26 mmol/L (22-29); Chloride 106 mmol/L (98-107); Glucose 118 mg/dL (70-105); Magnesium 1.9 mg/dL (1.6-2.6); Potassium 3.3 mmol/L (3.5-5.1); Sodium 141 mmol/L (136-145)
[2020-09-11] MEDS: HYDROcodone/Acetaminophen 7.5/325 mg Tablet PO PRN (03:55)
[2020-09-11] MEDS: metroNIDAZOLE 500 MG in Premix Bag 1 BAG IVPB SCH ×3 (06:43→21:24)
[2020-09-11] MEDS: Ondansetron PF 4 MG/2 ML Vial IVP PRN (09:53)
[2020-09-11] MEDS: Pantoprazole 40 MG VIAL IVP SCH ×2 (09:53→21:25)
[2020-09-11] MEDS: Famotidine 20 MG TAB PO SCH ×2 (15:30→21:25)
[2020-09-11] MEDS: Aspirin Chewable 81 MG TAB PO SCH (15:30)
[2020-09-11] MEDS: Clopidogrel Bisulfate 75 MG TAB PO SCH (15:30)
[2020-09-11] MEDS: Lactated Ringer's 1,000 ML IV SCH (15:31)
[2020-09-11] MEDS: Atorvastatin Calcium 40 MG TAB PO SCH (21:25)
[2020-09-12] MEDS: Lactated Ringer's 1,000 ML IV SCH (05:12)
[2020-09-12] MEDS: metroNIDAZOLE 500 MG in Premix Bag 1 BAG IVPB SCH (05:12)
[2020-09-12 06:38] LABS: #Eosinphils 0.2 thou/uL (0.0-0.7); #Lymphocytes 2.5 thou/uL (1.20-3.40); #Monocytes 0.5 thou/uL (0.11-0.59); #Neutrophils 4.1 thou/uL (1.40-6.50); %Basophils 0.3 % (0.0-1.0); %Lymphocytes 33.8 % (21.0-51.0); %Monocytes 6.6 % (0.0-10.0); %Neutrophils 56.4 % (42.0-75.0); Hemoglobin 12.6 g/dL (12.0-16.0); Mean Corpuscular HGB CONC 34.3 g/dL (32.0-36.0); Mean Corpuscular Hemoglobin 29.6 pg (27.0-31.0); Mean Corpuscular Volume 86.4 fL (78.0-98.0); Mean Platelet Volume 7.4 fL (7.4-10.4); Platelet Count 240 thou/uL (130-400); RBC Distribution Width 13.6 % (11.5-14.5); Red Blood Cell (RBC) Count 4.27 mill/uL (4.20-5.40); White Blood Cell (WBC) Count 7.3 thou/uL (4.8-10.8)
[2020-09-12 06:54] LABS: Anion Gap 11 mmol/L (10-20); BUN (Urea Nitrogen) 7 mg/dL (9.8-20.1); Calc. Creatinine Clearance 107 mL/min (70-130); Calcium 8.2 mg/dL (7.8-10.44); Carbon Dioxide 29 mmol/L (22-29); Chloride 107 mmol/L (98-107); Glucose 156 mg/dL (70-105); Potassium 3.6 mmol/L (3.5-5.1); Sodium 143 mmol/L (136-145)
[2020-09-12] MEDS: Famotidine 20 MG TAB PO SCH (08:11)
[2020-09-12] MEDS: Aspirin Chewable 81 MG TAB PO SCH (08:11)
[2020-09-12] MEDS: Clopidogrel Bisulfate 75 MG TAB PO SCH (08:11)
[2020-09-12] MEDS: Pantoprazole 40 MG VIAL IVP SCH (08:11)
[2020-09-12 12:14] VITALS: BP 133/84; TEMP 97.9
== END 2020-09-12 14:07 | disposition home or self-care (01) | DRG 394 ==
LOC: ERS 17:02 → 2SW 19:34 → OBSVTOIN 19:34 → T4-A 09-11 18:19
PROVIDERS: ADMIT Internal Medicine; ATTEND Family Medicine
DX: K55.039 Acute (reversible) ischemia of large intestine, extent unspecified (principal); I47.1 Supraventricular tachycardia; E11.9 Type 2 diabetes mellitus without complications; I10 Essential (primary) hypertension; Z20.822 Contact with and (suspected) exposure to COVID-19; K59.00 Constipation, unspecified; F41.9 Anxiety disorder, unspecified; E87.6 Hypokalemia; E78.5 Hyperlipidemia, unspecified; E78.00 Pure hypercholesterolemia, unspecified; I25.10 Atherosclerotic heart disease of native coronary artery without angina pectoris; Z79.899 Other long term (current) drug therapy; Z79.82 Long term (current) use of aspirin; Z79.84 Long term (current) use of oral hypoglycemic drugs; Z79.02 Long term (current) use of antithrombotics/antiplatelets; Z90.49 Acquired absence of other specified parts of digestive tract; Z80.0 Family history of malignant neoplasm of digestive organs; Z80.42 Family history of malignant neoplasm of prostate
CPT/HCPCS: 36415; 36416; 74177; 80048; 80053; 81003; 81015; 83630; 83690; 83735; 85007; 85025; 85027; 87081; 93005; 96367; 96375; 96376; C9113; G0378; J1956; J2270; J2405; J2543; Q9967; U0003; U0005

== ENCOUNTER 2021-04-09 09:54 | Outpatient (CLI) | payer BC | END 2021-04-09 09:55 | disposition home or self-care (01) | LOC: BICMAMMO 09:54 | PROVIDERS: ATTEND Family Medicine | DX: Z12.31 Encounter for screening mammogram for malignant neoplasm of breast (principal) | CPT/HCPCS: 77063; 77067 ==

== ENCOUNTER 2021-12-10 09:22 | Observation (INO) | payer BC ==
[2021-12-10 10:04] LABS: #Eosinphils 0.2 thou/uL (0.0-0.7); #Lymphocytes 3.6 thou/uL (1.20-3.40); #Monocytes 0.4 thou/uL (0.11-0.59); #Neutrophils 4.4 thou/uL (1.40-6.50); %Basophils 0.2 % (0.0-1.0); %Eosinophils 1.9 % (0.0-10.0); %Lymphocytes 41.9 % (21.0-51.0); %Monocytes 4.9 % (0.0-10.0); %Neutrophils 51.1 % (42.0-75.0); Hemoglobin 14.4 g/dL (12.0-16.0); Mean Corpuscular HGB CONC 34.4 g/dL (32.0-36.0); Mean Corpuscular Hemoglobin 29.6 pg (27.0-31.0); Mean Corpuscular Volume 86.1 fL (78.0-98.0); Mean Platelet Volume 7.6 fL (7.4-10.4); Platelet Count 275 thou/uL (130-400); RBC Distribution Width 13.6 % (11.5-14.5); Red Blood Cell (RBC) Count 4.86 mill/uL (4.20-5.40); White Blood Cell (WBC) Count 8.7 thou/uL (4.8-10.8)
[2021-12-10 10:27] LABS: ALT (SGPT) 21 U/L (8-55); AST (SGOT) 20 U/L (5-34); Albumin 3.8 g/dL (3.5-5.0); Alkaline Phosphatase 123 U/L (40-110); Anion Gap 14 mmol/L (10-20); BUN (Urea Nitrogen) 13 mg/dL (9.8-20.1); Bilirubin, Total 0.9 mg/dL (0.2-1.2); Calc. Creatinine Clearance 0 mL/min (70-130); Calcium 9.7 mg/dL (7.8-10.44); Carbon Dioxide 23 mmol/L (22-29); Chloride 103 mmol/L (98-107); Estimated GFR 52; Globulin 3.2 g/dL (2.4-3.5); Glucose 202 mg/dL (70-105); Potassium 3.4 mmol/L (3.5-5.1); Sodium 137 mmol/L (136-145)
[2021-12-10] MEDS ORDERED: Nitroglycerin 2% Ointment 1 INCH/1 GM Packet ONE (11:08)
[2021-12-10] MEDS ORDERED: Aspirin Chewable 81 MG TAB ONE (11:08)
[2021-12-10] MEDS ORDERED: Acetaminophen 325 MG TAB PO PRN (12:49)
[2021-12-10] MEDS ORDERED: Acetaminophen 650 MG Suppository PR PRN (12:49)
[2021-12-10] MEDS ORDERED: ALPRAZolam 0.25 MG TAB PO PRN (12:51)
[2021-12-10 14:06] VITALS: BMI 39.6
[2021-12-10 14:37] LABS: Troponin I Less than 0.010 ng/mL (< 0.028)
[2021-12-10 16:47] LABS: Troponin I Less than 0.010 ng/mL (< 0.028)
[2021-12-10] MEDS ORDERED: Dextrose 5% in Water 1,000 ML IV PRN (18:48)
[2021-12-10] MEDS ORDERED: Insulin Regular 300 UNITS/3 ML VIAL SC PRN ×2 (18:48)
[2021-12-10] MEDS ORDERED: Dextrose 50% Abboject 50 ML SYRINGE SLOW IVP PRN (18:48)
[2021-12-10] MEDS: Senokot S 8.6-50 MG TAB PO SCH (20:19)
[2021-12-10] MEDS ORDERED: Atorvastatin Calcium 40 MG TAB PO SCH (21:00)
[2021-12-10] MEDS ORDERED: Enoxaparin Sodium 40 MG/0.4 ML SYRINGE SC SCH (21:00)
[2021-12-11 05:26] LABS: #Basophils 0.1 thou/uL (0.0-0.2); #Eosinphils 0.2 thou/uL (0.0-0.7); #Lymphocytes 3.3 thou/uL (1.20-3.40); #Monocytes 0.5 thou/uL (0.11-0.59); #Neutrophils 3.9 thou/uL (1.40-6.50); %Basophils 0.7 % (0.0-1.0); %Eosinophils 2.2 % (0.0-10.0); %Lymphocytes 41.5 % (21.0-51.0); %Monocytes 6.1 % (0.0-10.0); %Neutrophils 49.4 % (42.0-75.0); Hemoglobin 13.1 g/dL (12.0-16.0); Mean Corpuscular HGB CONC 34.8 g/dL (32.0-36.0); Mean Corpuscular Hemoglobin 29.9 pg (27.0-31.0); Mean Corpuscular Volume 85.9 fL (78.0-98.0); Mean Platelet Volume 7.8 fL (7.4-10.4); Platelet Count 222 thou/uL (130-400); RBC Distribution Width 13.7 % (11.5-14.5); Red Blood Cell (RBC) Count 4.36 mill/uL (4.20-5.40); White Blood Cell (WBC) Count 7.9 thou/uL (4.8-10.8)
[2021-12-11 05:49] LABS: Anion Gap 12 mmol/L (10-20); BUN (Urea Nitrogen) 16 mg/dL (9.8-20.1); Calc. Creatinine Clearance 92 mL/min (70-130); Calcium 9.1 mg/dL (7.8-10.44); Carbon Dioxide 28 mmol/L (22-29); Cardiac Risk 4.5 (Less than 4.5); Chloride 104 mmol/L (98-107); Cholesterol 136 mg/dl (< 200 Desired); Estimated GFR 55; Glucose 177 mg/dL (70-105); HDL Cholesterol 30 mg/dL (>60 Neg Risk); LDL Cholesterol, Calculated 70 mg/dL; Potassium 3.7 mmol/L (3.5-5.1); Sodium 140 mmol/L (136-145); Triglycerides 179 mg/dL (Less than 150)
[2021-12-11] MEDS ORDERED: Communication Order-Pharmacy FS SCH (07:00)
[2021-12-11] MEDS ORDERED: Mometasone Furoate 30 PUFF 220 MCG INH SCH (07:00)
[2021-12-11] MEDS ORDERED: Iopamidol 370 76% 100 ML VIAL ONE (08:51)
[2021-12-11] MEDS ORDERED: Amlodipine 5 MG TAB PO SCH (09:00)
[2021-12-11] MEDS ORDERED: Losartan 25 MG TAB PO SCH (09:00)
[2021-12-11] MEDS ORDERED: Aspirin Chewable 81 MG TAB PO SCH (09:00)
[2021-12-11] MEDS ORDERED: Ezetimibe 10 MG TAB PO SCH (09:00)
[2021-12-11] MEDS ORDERED: Clopidogrel Bisulfate 75 MG TAB PO SCH (09:00)
[2021-12-11] MEDS ORDERED: Furosemide 20 MG TAB PO SCH (09:00)
[2021-12-11] MEDS ORDERED: Lidocaine 1% (PF) 30 ML VIAL ONE (09:43)
[2021-12-11] MEDS ORDERED: Fentanyl 100 MCG/2 ML VIAL ONE (10:17)
[2021-12-11] MEDS ORDERED: Midazolam HCl 2 mg/2 ml Vial ONE (10:17)
[2021-12-11] MEDS ORDERED: Acetaminophen/Codeine 30-300mg Tablet PO PRN ×2 (11:01)
[2021-12-11] MEDS ORDERED: Sodium Chloride 0.9% 200 ML IV PRN (11:01)
[2021-12-11] MEDS ORDERED: Nitroglycerin 0.4 MG TAB (25 Tab Bottle) SL PRN (11:01)
[2021-12-11] MEDS: Bisoprolol Fumarate/HCTZ 10 mg/6.25 mg Tablet PO SCH ×2 (12:31→16:16)
[2021-12-11] MEDS: Aspirin Chewable 81 MG TAB PO SCH ×2 (12:31→16:17)
[2021-12-11] MEDS: Senokot S 8.6-50 MG TAB PO SCH (12:32)
[2021-12-11 16:13] VITALS: BP 110/66; TEMP 97.8
== END 2021-12-11 19:12 | disposition home or self-care (01) ==
LOC: ERS 09:22 → 2SW 11:09 → INTOOBSV 11:09
PROVIDERS: ADMIT Family Medicine; ATTEND Family Medicine
PROC: 4A023N7 Measurement of Cardiac Sampling and Pressure, Left Heart, Percutaneous Approach (ICD-10-PCS; principal; 2021-12-11)
PROC: B2111ZZ Fluoroscopy of Multiple Coronary Arteries using Low Osmolar Contrast (ICD-10-PCS; 2021-12-11)
DX: R07.89 Other chest pain (principal); I25.10 Atherosclerotic heart disease of native coronary artery without angina pectoris; I25.82 Chronic total occlusion of coronary artery; I12.9 Hypertensive chronic kidney disease with stage 1 through stage 4 chronic kidney disease, or unspecified chronic kidney disease; E11.22 Type 2 diabetes mellitus with diabetic chronic kidney disease; N18.2 Chronic kidney disease, stage 2 (mild); E78.00 Pure hypercholesterolemia, unspecified; E66.9 Obesity, unspecified; Z68.39 Body mass index [BMI] 39.0-39.9, adult; Z79.02 Long term (current) use of antithrombotics/antiplatelets; Z79.82 Long term (current) use of aspirin; Z79.84 Long term (current) use of oral hypoglycemic drugs; Z79.899 Other long term (current) drug therapy; Z20.822 Contact with and (suspected) exposure to COVID-19
CPT/HCPCS: 36415; 36416; 71045; 80048; 80053; 80061; 83880; 84484; 85025; 93005; 93458; 94760; 96372; 99152; C1769; G0378; J1650; J2001; J2250; J3010; Q9967; U0003; U0005

== ENCOUNTER 2022-11-05 15:03 | Outpatient (CLI) | payer BC | END 2022-11-05 15:04 | disposition home or self-care (01) | LOC: BICMRI 15:03 | PROVIDERS: ATTEND Neurological Surgery | DX: M47.22 Other spondylosis with radiculopathy, cervical region (principal); M48.02 Spinal stenosis, cervical region | CPT/HCPCS: 72141 ==

== ENCOUNTER 2022-11-06 12:26 | Outpatient (CLI) | payer BC | END 2022-11-06 12:27 | disposition home or self-care (01) | LOC: RAD 12:26 | PROVIDERS: ATTEND Neurological Surgery | DX: M47.26 Other spondylosis with radiculopathy, lumbar region (principal); M47.22 Other spondylosis with radiculopathy, cervical region; M43.12 Spondylolisthesis, cervical region; M50.122 Cervical disc disorder at C5-C6 level with radiculopathy; M50.123 Cervical disc disorder at C6-C7 level with radiculopathy; M47.817 Spondylosis without myelopathy or radiculopathy, lumbosacral region | CPT/HCPCS: 72040; 72100 ==

== ENCOUNTER 2022-11-12 10:57 | Outpatient (CLI) | payer BC | END 2022-11-12 10:58 | disposition home or self-care (01) | LOC: BICMRI 10:57 | PROVIDERS: ATTEND Neurological Surgery | DX: M47.26 Other spondylosis with radiculopathy, lumbar region (principal) | CPT/HCPCS: 72148 ==

== ENCOUNTER 2023-03-14 09:46 | Outpatient (CLI) | payer BC ==
[2023-03-14 11:46] LABS: Hematocrit 43.1 % (34.9-44.5); Hemoglobin 14.5 g/dL (12.0-15.5); Mean Corpuscular HGB CONC 33.6 g/dL (32.0-36.0); Mean Corpuscular Hemoglobin 28.3 pg (27.0-33.0); Platelet Count 315 10x3/uL (150-450); RBC Distribution Width 13.9 % (11.5-14.5); Red Blood Cell (RBC) Count 5.13 10x6/uL (3.90-5.03); White Blood Cell (WBC) Count 8.5 10x3/uL (3.5-10.5)
[2023-03-14 12:08] LABS: INR-International Normal Ratio 0.9; PTT 28.7 sec (22.0-33.0); Prothrombin Time 10.1 sec (9.5-12.1)
[2023-03-14 12:24] LABS: Anion Gap 13 mmol/L (10-20); BUN (Urea Nitrogen) 13 mg/dL (9.8-20.1); Calc. Creatinine Clearance 0 mL/min (70-130); Calcium 8.8 mg/dL (7.8-10.44); Carbon Dioxide 28 mmol/L (23-31); Chloride 105 mmol/L (98-107); Estimated GFR 61; Glucose 148 mg/dL (80-115); Potassium 3.3 mmol/L (3.5-5.1); Sodium 143 mmol/L (136-145)
== END 2023-03-14 09:47 | disposition home or self-care (01) ==
LOC: LABBT 09:46
PROVIDERS: ATTEND Neurological Surgery
DX: Z01.818 Encounter for other preprocedural examination (principal); M50.00 Cervical disc disorder with myelopathy, unspecified cervical region
CPT/HCPCS: 80048; 85027; 85610; 85730; 93005; 93010

== ENCOUNTER 2023-03-17 05:40 | Day surgery (SDC) | payer BC ==
[2023-03-14 11:11] VITALS: BMI 38.0
[2023-03-17] MEDS ORDERED: Vancomycin 1 GM VIAL ONE (06:10)
[2023-03-17] MEDS ORDERED: Thrombin 5000 UNITS/5 ML VIAL ONE (06:10)
[2023-03-17] MEDS ORDERED: Lidocaine 1% MPF 2 ML VIAL ONE (06:12)
[2023-03-17] MEDS ORDERED: LevoFLOXacin 500 mg/D5W 100 ML BAG ONE (06:13)
[2023-03-17] MEDS ORDERED: Clindamycin/D5W 900 mg/50 ml Premix Bag ONE (06:13)
[2023-03-17] MEDS ORDERED: Dexamethasone 4 mg/ml Vial ONE (06:37)
[2023-03-17] MEDS ORDERED: fentaNYL PF 100 MCG/2 ML SYRINGE ONE (06:37)
[2023-03-17] MEDS ORDERED: Ondansetron PF 4 MG/2 ML Vial ONE ×2 (06:37→07:03)
[2023-03-17] MEDS ORDERED: Rocuronium Bromide 10 MG/ML (10ML VIAL) ONE ×3 (06:37→09:26)
[2023-03-17] MEDS ORDERED: Lidocaine 1% PF 5 ML VIAL ONE ×2 (06:37→07:03)
[2023-03-17] MEDS ORDERED: PROPOFOL 20 ML ONE ×2 (06:37→10:12)
[2023-03-17] MEDS ORDERED: Midazolam HCl 2 mg/2 ml Vial ONE (06:49)
[2023-03-17] MEDS ORDERED: ePHEDrine Sulfate 50 MG/10 ML VIAL ONE ×2 (07:03→07:56)
[2023-03-17] MEDS ORDERED: Dexamethasone 20 MG/5 ML VIAL ONE (07:03)
[2023-03-17] MEDS ORDERED: PROPOFOL 200 MG/20 ML VIAL ONE (07:03)
[2023-03-17] MEDS ORDERED: PHENYLEPHRINE-NS 100 MCG/ML 10 ML SYRINGE ONE (07:03)
[2023-03-17] MEDS ORDERED: Calcium Chloride 1 GM/10 ML Abboject SYRINGE ONE ×2 (07:03→08:45)
[2023-03-17] MEDS ORDERED: Dexmedetomidine 200 MCG/2 ML VIAL ONE (08:15)
[2023-03-17] MEDS ORDERED: Sodium Chloride 0.9% 100 ML ONE (08:47)
[2023-03-17] MEDS ORDERED: Phenylephrine 10 MG/ML VIAL ONE (08:47)
[2023-03-17] MEDS ORDERED: Sevoflurane 250 ML INH ANEST BOTTLE ONE (09:05)
[2023-03-17] MEDS ORDERED: SUGAMMADEX SODIUM 200 MG/2 ML VIAL ONE (10:01)
[2023-03-17] MEDS ORDERED: Fentanyl 250 MCG/5 ML VIAL ONE (10:57)
[2023-03-17] MEDS ORDERED: Cyclobenzaprine 10 MG TAB ONE (12:36)
[2023-03-17] MEDS ORDERED: HYDROcodone/Acetaminophen 5/325 mg Tablet ONE (13:59)
== END 2023-03-17 15:16 | disposition home or self-care (01) ==
LOC: SDC 05:40
PROVIDERS: ATTEND Neurological Surgery
PROC: 0RG10K1 Fusion of Cervical Vertebral Joint with Nonautologous Tissue Substitute, Posterior Approach, Posterior Column, Open Approach (ICD-10-PCS; principal; 2023-03-17)
PROC: XNS New Technology, Bones, Reposition (ICD-10-PCS; principal; 2023-03-17)
PROC: 0SG00K1 Fusion of Lumbar Vertebral Joint with Nonautologous Tissue Substitute, Posterior Approach, Posterior Column, Open Approach (ICD-10-PCS; principal; 2023-03-17)
DX: M50.022 Cervical disc disorder at C5-C6 level with myelopathy (principal); M50.023 Cervical disc disorder at C6-C7 level with myelopathy; G95.20 Unspecified cord compression; M54.50 Low back pain, unspecified; E78.00 Pure hypercholesterolemia, unspecified; E11.9 Type 2 diabetes mellitus without complications; F41.9 Anxiety disorder, unspecified; M19.90 Unspecified osteoarthritis, unspecified site; I11.0 Hypertensive heart disease with heart failure; M81.0 Age-related osteoporosis without current pathological fracture; Z90.49 Acquired absence of other specified parts of digestive tract; Z79.84 Long term (current) use of oral hypoglycemic drugs; Z79.82 Long term (current) use of aspirin; Z79.899 Other long term (current) drug therapy; Z88.0 Allergy status to penicillin
CPT/HCPCS: C1713; J1100; J1956; J2250; J2370; J2405; J2704; J3010; J3370; J3490

== ENCOUNTER 2023-06-20 15:31 | Outpatient (CLI) | payer BC | END 2023-06-20 15:32 | disposition home or self-care (01) | LOC: BICMAMMO 15:31 | PROVIDERS: ATTEND Family Medicine | DX: Z12.31 Encounter for screening mammogram for malignant neoplasm of breast (principal) | CPT/HCPCS: 77063; 77067 ==

== ENCOUNTER 2023-10-23 10:52 | Observation (INO) | payer BC ==
[2023-10-23 11:42] LABS: ALT (SGPT) 20 U/L (8-55); AST (SGOT) 18 U/L (5-34); Albumin 3.8 g/dL (3.4-4.8); Alkaline Phosphatase 142 U/L (40-110); Anion Gap 10 mmol/L (10-20); BUN (Urea Nitrogen) 9 mg/dL (9.8-20.1); Bilirubin, Total 1.1 mg/dL (0.2-1.2); Calc. Creatinine Clearance 0 mL/min (70-130); Calcium 9.7 mg/dL (7.8-10.44); Carbon Dioxide 28 mmol/L (23-31); Chloride 106 mmol/L (98-107); Estimated GFR 52; Globulin 3.2 g/dL (2.4-3.5); Glucose 147 mg/dL (80-115); Lipase 19 U/L (8-78); Potassium 3.3 mmol/L (3.5-5.1); Sodium 141 mmol/L (136-145)
[2023-10-23 11:46] LABS: Troponin I Less than 0.010 ng/mL (< 0.028)
[2023-10-23] MEDS ORDERED: Iopamidol-370 76% 500 ML MDV (1 ML CHARGE) ONE (11:51)
[2023-10-23 12:32] LABS: #Basophils 0.06 10x3/uL (0.0-0.2); %Basophils 0.7 % (0.0-1.0); %Eosinophils 1.5 % (0.0-10.0); %Monocytes 5.1 % (0.0-10.0); %Neutrophils 49.6 % (42.0-75.0); Hematocrit 40.5 % (36.0-47.0); Hemoglobin 14.1 g/dL (12.0-16.0); Mean Corpuscular HGB CONC 34.8 g/dL (32.0-36.0); Mean Corpuscular Hemoglobin 28.4 pg (27.0-31.0); Mean Corpuscular Volume 81.7 fL (78.0-98.0); Mean Platelet Volume 9.8 fL (7.4-10.4); Platelet Count 254 10x3/uL (130-400); RBC Distribution Width 13.5 % (11.5-14.5); Red Blood Cell (RBC) Count 4.96 mill/uL (4.20-5.40)
[2023-10-23] MEDS ORDERED: Nitroglycerin 2% Ointment 1 INCH/1 GM Packet ONE (12:36)
[2023-10-23] MEDS ORDERED: Aspirin Chewable 81 MG TAB ONE (12:37)
[2023-10-23] MEDS ORDERED: Ondansetron PF 4 MG/2 ML Vial ONE (12:37)
[2023-10-23] MEDS ORDERED: Potassium Chloride 20 MEQ TAB ONE (13:32)
[2023-10-23 17:40] LABS: Troponin I Less than 0.010 ng/mL (< 0.028)
[2023-10-23 17:47] LABS: Magnesium 2.2 mg/dL (1.6-2.6)
[2023-10-23 18:14] VITALS: BMI 37.9
[2023-10-23] MEDS: Lidocaine 2% Viscous 10 mL, Alum & Magn 30 mL SSW SCH (18:28)
[2023-10-23] MEDS ORDERED: Acetaminophen 325 MG TAB PO PRN (18:37)
[2023-10-23] MEDS ORDERED: Morphine 2 MG/ML VIAL SLOW IVP PRN (18:39)
[2023-10-23] MEDS ORDERED: Dextrose 50% Abboject 50 ML SYRINGE SLOW IVP PRN (18:41)
[2023-10-23] MEDS ORDERED: Dextrose 5% in Water 1,000 ML IV PRN (18:41)
[2023-10-23] MEDS ORDERED: Glucagon 1 MG/ML KIT IM PRN (18:41)
[2023-10-23] MEDS ORDERED: Insulin Lispro 100 UNIT/ML 10 ML VIAL SC PRN (18:41)
[2023-10-23] MEDS ORDERED: ALPRAZolam 0.25 MG TAB PO PRN (18:45)
[2023-10-23] MEDS ORDERED: Enoxaparin 100 MG (1 mL) SYRINGE SC SCH (19:17)
[2023-10-23] MEDS ORDERED: Nitroglycerin 0.4 MG TAB (25 Tab Bottle) SL PRN (20:01)
[2023-10-23 20:29] LABS: Troponin I Less than 0.010 ng/mL (< 0.028)
[2023-10-23] MEDS: Atorvastatin Calcium 40 MG TAB PO SCH (20:58)
[2023-10-23] MEDS: Enoxaparin 120 MG/0.8 ML SYRINGE SC SCH (20:58)
[2023-10-23] MEDS: Ranolazine ER 500 MG TAB PO SCH (20:58)
[2023-10-24] MEDS: Enoxaparin 30 MG (0.3 mL) SYRINGE SC SCH (01:58)
[2023-10-24] MEDS: Enoxaparin 80 MG (0.8 mL) SYRINGE SC SCH (01:58)
[2023-10-24] MEDS: Enoxaparin 100 MG (1 mL) SYRINGE SC SCH (01:59)
[2023-10-24 03:55] LABS: #Basophils 0.05 10x3/uL (0.0-0.2); %Basophils 0.6 % (0.0-1.0); %Eosinophils 1.9 % (0.0-10.0); %Lymphocytes 39.5 % (21.0-51.0); %Monocytes 6.5 % (0.0-10.0); %Neutrophils 51.3 % (42.0-75.0); Hemoglobin 13.8 g/dL (12.0-16.0); Mean Corpuscular HGB CONC 34.5 g/dL (32.0-36.0); Mean Corpuscular Hemoglobin 27.9 pg (27.0-31.0); Mean Platelet Volume 9.7 fL (7.4-10.4); Platelet Count 224 10x3/uL (130-400); RBC Distribution Width 13.8 % (11.5-14.5); Red Blood Cell (RBC) Count 4.94 mill/uL (4.20-5.40)
[2023-10-24 04:15] LABS: Anion Gap 13 mmol/L (10-20); BUN (Urea Nitrogen) 11 mg/dL (9.8-20.1); Calc. Creatinine Clearance 99 mL/min (70-130); Calcium 8.6 mg/dL (7.8-10.44); Carbon Dioxide 25 mmol/L (23-31); Chloride 107 mmol/L (98-107); Estimated GFR 64; Glucose 127 mg/dL (80-115); Potassium 3.1 mmol/L (3.5-5.1); Sodium 142 mmol/L (136-145)
[2023-10-24 04:22] LABS: Troponin I Less than 0.010 ng/mL (< 0.028)
[2023-10-24 08:40] VITALS: TEMP 98.1
[2023-10-24] MEDS ORDERED: Isosorbide Mononitrate 60 MG ER.TAB PO SCH (09:00)
[2023-10-24] MEDS ORDERED: Amlodipine 5 MG TAB PO SCH (09:00)
[2023-10-24] MEDS: Potassium Chloride 20 MEQ TAB PO SCH (09:03)
[2023-10-24] MEDS: Bisoprolol Fumarate 5 MG TAB PO SCH (09:03)
[2023-10-24] MEDS: Aspirin 81 mg Enteric Coated Tablet PO SCH (09:03)
[2023-10-24] MEDS: Isosorbide Mononitrate 30 MG ER.TAB PO SCH (09:03)
[2023-10-24] MEDS: Sertraline 25 MG TAB PO SCH (09:04)
[2023-10-24 10:51] VITALS: BMI 37.9
[2023-10-24 12:19] VITALS: BP 138/74
[2023-10-24] MEDS: Furosemide 20 MG (2 mL) VIAL SLOW IVP SCH (13:14)
[2023-10-25] MEDS ORDERED: Furosemide 20 MG TAB PO SCH (09:00)
== END 2023-10-24 14:51 | disposition home or self-care (01) ==
LOC: ERS 10:52 → 2SW 18:07
PROVIDERS: ADMIT Internal Medicine; ATTEND Internal Medicine
PROC: B246ZZZ Ultrasonography of Right and Left Heart (ICD-10-PCS; principal; 2023-10-24)
DX: R07.89 Other chest pain (principal); I25.10 Atherosclerotic heart disease of native coronary artery without angina pectoris; I11.0 Hypertensive heart disease with heart failure; I50.33 Acute on chronic diastolic (congestive) heart failure; E87.6 Hypokalemia; E78.5 Hyperlipidemia, unspecified; E11.9 Type 2 diabetes mellitus without complications; F39 Unspecified mood [affective] disorder; F41.9 Anxiety disorder, unspecified; I95.1 Orthostatic hypotension; E66.01 Morbid (severe) obesity due to excess calories; Z87.59 Personal history of other complications of pregnancy, childbirth and the puerperium; Z90.49 Acquired absence of other specified parts of digestive tract; Z98.890 Other specified postprocedural states; Z88.0 Allergy status to penicillin; Z79.84 Long term (current) use of oral hypoglycemic drugs; Z79.82 Long term (current) use of aspirin; Z79.899 Other long term (current) drug therapy
CPT/HCPCS: 36415; 36416; 71046; 71275; 74174; 80048; 83690; 83735; 83880; 84484; 85025; 85379; 93005; 93306; 94760; 96372; 96374; G0378; J1650; J1940; J2405; Q9967

== ENCOUNTER 2025-02-25 13:08 | Outpatient (CLI) | payer BC | END 2025-02-25 13:09 | disposition home or self-care (01) | LOC: MRI 13:08 | PROVIDERS: ATTEND Internal Medicine Rheumatology | DX: G43.019 Migraine without aura, intractable, without status migrainosus (principal); I67.89 Other cerebrovascular disease; J34.89 Other specified disorders of nose and nasal sinuses | CPT/HCPCS: 70551 ==

== ENCOUNTER 2025-03-02 11:24 | Outpatient (CLI) | payer BC | END 2025-03-02 11:25 | disposition home or self-care (01) | LOC: BICMAMMO 11:24 | PROVIDERS: ATTEND Internal Medicine Rheumatology | DX: M81.0 Age-related osteoporosis without current pathological fracture (principal); M85.851 Other specified disorders of bone density and structure, right thigh; M85.852 Other specified disorders of bone density and structure, left thigh | CPT/HCPCS: 77080 ==

== ENCOUNTER 2025-03-07 15:16 | Inpatient (IN) | payer BC ==
[~2025-03-07 15:16] MED LIST changes: -Iopamidol-370 76% 500 ML 1 ML ONE; +Iopamidol-370 76% 500 ML MDV (1 ML CHARGE) ONE
[2025-03-07 18:17] LABS: #Basophils 0.06 10x3/uL (0.0-0.2); #Eosinophils 0.10 10x3/uL (0.0-0.7); #Monocytes 0.55 10x3/uL (0.11-0.59); #Neutrophils 3.68 10x3/uL (1.40-6.50); %Basophils 0.8 % (0.0-1.0); %Eosinophils 1.3 % (0.0-10.0); %Lymphocytes 42.1 % (21.0-51.0); %Monocytes 7.2 % (0.0-10.0); %Neutrophils 48.2 % (42.0-75.0); Hematocrit 44.9 % (36.0-47.0); Hemoglobin 15.7 g/dL (12.0-16.0); Mean Corpuscular Hemoglobin 29.3 pg (27.0-31.0); Mean Corpuscular Volume 83.8 fL (78.0-98.0); Platelet Count 172 10x3/uL (130-400); Red Blood Cell (RBC) Count 5.36 mill/uL (4.20-5.40); White Blood Cell (WBC) Count 7.64 10x3/uL (4.8-10.8)
[2025-03-07 18:33] LABS: ALT (SGPT) 37 U/L (Less than 34); AST (SGOT) 24 U/L (11-34); Albumin 3.8 g/dL (3.1-4.5); Alkaline Phosphatase 83 U/L (40-110); Anion Gap 14 mmol/L (10-20); BUN (Urea Nitrogen) 15 mg/dL (9.8-20.1); Bilirubin, Total 1.5 mg/dL (0.3-1.2); Calc. Creatinine Clearance 0 mL/min (70-130); Calcium 10.6 mg/dL (7.8-10.44); Carbon Dioxide 27 mmol/L (23-31); Chloride 102 mmol/L (98-107); Globulin 2.0 g/dL (2.4-3.5); Glucose 155 mg/dL (80-115); Potassium 2.8 mmol/L (3.5-5.1); Sodium 140 mmol/L (136-145)
[2025-03-07 21:05] LABS: Glucose, Urine (Dipstick) 100 mg/dL (Negative); Leukocyte Negative (Negative); Protein, Urine (Dipstick) 30 mg/dL (Neg-Trace); Specific Gravity, Urine Greater/Equal 1.030 (1.005-1.030)
[2025-03-07 21:09] LABS: CAUTI Indications for Culture Alt mental st,lethar; RBC/HPF 0-3 HPF (0-3); WBC/HPF 0-3 HPF (0-3)
[2025-03-07 21:10] LABS: Bacteria/HPF 1+ HPF (None Seen)
[2025-03-07 21:11] LABS: Urine Culture Reflex No No
[2025-03-07] MEDS ORDERED: Potassium Bicarbonate/Cit Ac 20 MEQ TAB ONE ×2 (21:39→23:52)
[2025-03-07] MEDS ORDERED: LevoFLOXacin 750 mg/D5W 150 ml Premix Bag ONE (21:49)
[2025-03-07] MEDS ORDERED: Acetaminophen 325 MG TAB PO PRN (23:32)
[2025-03-07] MEDS ORDERED: Potassium Chloride 20 MEQ (100 mL) BAG ONE (23:51)
[2025-03-08 01:25] VITALS: BMI 38.2
[2025-03-08 04:17] LABS: #Basophils 0.03 10x3/uL (0.0-0.2); #Eosinophils 0.12 10x3/uL (0.0-0.7); #Monocytes 0.52 10x3/uL (0.11-0.59); #Neutrophils 2.67 10x3/uL (1.40-6.50); %Basophils 0.5 % (0.0-1.0); %Eosinophils 2.1 % (0.0-10.0); %Lymphocytes 41.8 % (21.0-51.0); %Monocytes 9.0 % (0.0-10.0); %Neutrophils 46.4 % (42.0-75.0); Hematocrit 42.1 % (36.0-47.0); Hemoglobin 15.0 g/dL (12.0-16.0); Mean Corpuscular Hemoglobin 29.6 pg (27.0-31.0); Mean Corpuscular Volume 83.2 fL (78.0-98.0); Platelet Count 160 10x3/uL (130-400); Red Blood Cell (RBC) Count 5.06 mill/uL (4.20-5.40); White Blood Cell (WBC) Count 5.76 10x3/uL (4.8-10.8)
[2025-03-08 04:32] LABS: Anion Gap 13 mmol/L (10-20); BUN (Urea Nitrogen) 14 mg/dL (9.8-20.1); Calc. Creatinine Clearance 78 mL/min (70-130); Calcium 9.5 mg/dL (7.8-10.44); Carbon Dioxide 31 mmol/L (23-31); Chloride 102 mmol/L (98-107); Glucose 171 mg/dL (80-115); Potassium 3.1 mmol/L (3.5-5.1); Sodium 143 mmol/L (136-145)
[2025-03-08] MEDS ORDERED: Electrolyte Replacement Protocol 1 EACH FS SCH (05:00)
[2025-03-08] MEDS: Potassium Bicarbonate/Cit Ac 20 MEQ TAB PO SCH (05:28)
[2025-03-08] MEDS: Aspirin 81 mg Enteric Coated Tablet PO SCH (08:58)
[2025-03-08] MEDS: Insulin Glargine 30 UNITS/0.3 ML VIAL SC SCH (08:58)
[2025-03-08] MEDS: FLU (Fluarix Triv) 25-26 (6MOS UP)/PF 45 MCG/0.5 ML Syringe IM ONE (13:00)
[2025-03-08] MEDS ORDERED: Non-Formulary Item 1 EACH (Atorvastatin Calcium [Atorvastatin Calcium] 80 MG Tablet) PO SCH (21:00)
[2025-03-08] MEDS ORDERED: Non-Formulary Item 1 EACH (Ranolazine [Ranexa] 1,000 MG Tab.Er.12h) PO SCH (21:00)
[2025-03-09] MEDS: Isosorbide Mononitrate 30 MG ER.TAB.S PO SCH (08:19)
[2025-03-09] MEDS: Ezetimibe 10 MG TAB PO SCH (08:19)
[2025-03-09] MEDS: Furosemide 20 MG TAB PO SCH (08:20)
[2025-03-09] MEDS: Sertraline 25 MG TAB PO SCH (08:20)
[2025-03-09] MEDS ORDERED: Non-Formulary Item 1 EACH (Sertraline Hcl [Sertraline Hcl] 50 MG Tablet) PO SCH (09:00)
[2025-03-09 09:53] LABS: #Basophils 0.05 10x3/uL (0.0-0.2); #Eosinophils 0.13 10x3/uL (0.0-0.7); #Monocytes 0.38 10x3/uL (0.11-0.59); #Neutrophils 2.60 10x3/uL (1.40-6.50); %Basophils 0.9 % (0.0-1.0); %Eosinophils 2.3 % (0.0-10.0); %Lymphocytes 43.7 % (21.0-51.0); %Monocytes 6.7 % (0.0-10.0); %Neutrophils 46.2 % (42.0-75.0); Hematocrit 43.2 % (36.0-47.0); Hemoglobin 14.9 g/dL (12.0-16.0); Mean Corpuscular Hemoglobin 29.4 pg (27.0-31.0); Mean Corpuscular Volume 85.4 fL (78.0-98.0); Platelet Count 168 10x3/uL (130-400); Red Blood Cell (RBC) Count 5.06 mill/uL (4.20-5.40); White Blood Cell (WBC) Count 5.63 10x3/uL (4.8-10.8)
[2025-03-09 10:17] LABS: Anion Gap 10 mmol/L (10-20); BUN (Urea Nitrogen) 12 mg/dL (9.8-20.1); Calc. Creatinine Clearance 84 mL/min (70-130); Calcium 9.0 mg/dL (7.8-10.44); Carbon Dioxide 25 mmol/L (23-31); Chloride 103 mmol/L (98-107); Glucose 179 mg/dL (80-115); Potassium 3.7 mmol/L (3.5-5.1); Sodium 134 mmol/L (136-145)
[2025-03-09 15:41] VITALS: TEMP 98
[2025-03-09 16:26] VITALS: BP 136/78
== END 2025-03-09 19:01 | disposition home or self-care (01) | DRG 282 ==
LOC: ERS 15:16 → OBS 23:33 → OBSVTOIN 03-08 10:54
PROVIDERS: ADMIT Student in an Organized Health Care Education/Training Program; ATTEND Internal Medicine
PROC: 3E02340 Introduction of Influenza Vaccine into Muscle, Percutaneous Approach (ICD-10-PCS; principal; 2025-03-08)
PROC: F07Z9ZZ Gait Training/Functional Ambulation Treatment (ICD-10-PCS; 2025-03-09)
DX: I95.1 Orthostatic hypotension (principal); I21.A1 Myocardial infarction type 2; R53.81 Other malaise; I10 Essential (primary) hypertension; I25.10 Atherosclerotic heart disease of native coronary artery without angina pectoris; Z88.0 Allergy status to penicillin; E11.65 Type 2 diabetes mellitus with hyperglycemia; Z79.4 Long term (current) use of insulin; Z90.49 Acquired absence of other specified parts of digestive tract; F41.9 Anxiety disorder, unspecified; Z98.891 History of uterine scar from previous surgery; Z23 Encounter for immunization
CPT/HCPCS: 36415; 51701; 70450; 71045; 71275; 72125; 80048; 80053; 81001; 83880; 84484; 85025; 90656; 93005; 96365; 96366; 96367; 96372; G0378; J1815; J1956; J3480; Q9967